=== PATIENT | female | born 1975 | race African-American/Black ===

== ENCOUNTER 2020-03-13 10:29 | Inpatient (IN) ==
[2020-03-13] MEDS ORDERED: ONDANSETRON 4 MG/2 ML VIAL IV PRN (11:00)
[2020-03-13] MEDS ORDERED: MAGNESIUM SULF RIDER 100 ML IV ONE (11:04)
[2020-03-13] MEDS ORDERED: TERBUTALINE 1 MG/1 ML VIAL SUBCUT ONE ×3 (11:04→23:40)
[2020-03-13] MEDS: LACTATED RINGERS 1,000 ML IV SCH ×2 (11:17→18:35)
[2020-03-13 11:18] LABS: Basophils % 0.4 % (0.0-0.8); Eosinophils # 0.1 10*3/uL (0.0-0.87); Eosinophils % 0.8 % (0.00-10.9); Hematocrit 34.4 VOL% (35.7-47.0); Hemoglobin 12.4 GM/DL (12.0-16.0); Immature Granulocytes % 0.5 %; Immature Granulocytes Absolute 0.05 #; Lymphocytes # 2.1 10*3/uL (1.4-4.0); Mean Corpuscular Volume 77.8 FL (87-102); Mean Platelet Volume 11.2 FL (9.6-12.0); Monocytes % 8.7 % (1.7-12.7); Neutrophils % 67.6 % (38.7-73.9); Platelet Count 233 T/CUMM (130-400); Red Blood Count 4.42 MC/CUMM (3.8-5.5); Red Cell Distribution Width 13.4 % (9.3-17.3); White Blood Count 9.7 T/CUMM (4-12)
[2020-03-13] MEDS ORDERED: BETAMETH SODIUM PHOS/ACETATE 30 MG/5 ML VIAL IM SCH (11:30)
[2020-03-13] MEDS ORDERED: MAGNESIUM SULF DRIP 40 GM/1,000 ML ML IV SCH (11:30)
[2020-03-13 11:41] LABS: Albumin 2.5 G/DL (3.4-5.0); Bilirubin,Total 0.5 MG/DL (0.2-1.0); Calcium 9.3 MG/DL (8.5-10.1); Osmolality,Calculated 269.8 MOS/KG (273-304); Total Protein 6.3 G/DL (6.4-8.3)
[2020-03-13] MEDS: CLINDAMYCIN INJ 900 MG in PREMIX 1 EACH IV SCH ×2 (12:13→19:42)
[2020-03-13] MEDS: FAMOTIDINE 20 MG/2 ML VIAL IV SCH (13:18)
[2020-03-13] MEDS ORDERED: MEPERIDINE 50 MG/1 ML VIAL IM ONE (16:08)
[2020-03-13] MEDS ORDERED: ONDANSETRON 4 MG/2 ML VIAL IM ONE (16:08)
[2020-03-13] MEDS ORDERED: ALUMINUM/MAGNES/SIMETH MAX STR 30 ML UDCUP PO PRN (19:46)
[2020-03-13] MEDS: MEPERIDINE 50 MG/1 ML VIAL IV PRN ×2 (20:08→23:30)
[2020-03-13] MEDS ORDERED: BUTORPHANOL 2 MG/ML VIAL IV PRN (23:34)
[2020-03-13] MEDS ORDERED: TERBUTALINE 1 MG/1 ML VIAL ONE (23:37)
[2020-03-14] MEDS: TERBUTALINE 1 MG/1 ML VIAL SUBCUT PRN ×2 (00:13→00:45)
[2020-03-14] MEDS: FAMOTIDINE 20 MG/2 ML VIAL IV SCH (01:25)
[2020-03-14] MEDS: LACTATED RINGERS 1,000 ML IV SCH (03:08)
[2020-03-14] MEDS: CLINDAMYCIN INJ 900 MG in PREMIX 1 EACH IV SCH (04:23)
[2020-03-14] MEDS ORDERED: miSOPROStoL 200 MCG TABLET ONE (07:45)
[2020-03-14] MEDS ORDERED: TRANEXAMIC ACID 1,000 MG/10 ML VIAL ONE ×2 (07:45→07:46)
[2020-03-14] MEDS ORDERED: OXYTOCIN/LR 20 UNIT/1,000 ML BAG IV ONE ×2 (07:45→07:57)
[2020-03-14] MEDS ORDERED: CARBOPROST TROMETHAMINE 250 MCG/ML AMP IM ONE (07:46)
[2020-03-14] MEDS ORDERED: METHYLERGONOVINE 0.2 MG/1 ML AMP ONE (07:46)
[2020-03-14] MEDS ORDERED: BENZOCAINE 20%/MENTHOL 0.5% SPRAY 56 GM CAN TOP PRN (07:57)
[2020-03-14] MEDS ORDERED: RHO(D) IMMUNE GLOBULIN 300 MCG SYRINGE IM ONE (07:57)
[2020-03-14] MEDS ORDERED: WITCH HAZEL PADS 100/JAR TOP PRN (07:57)
[2020-03-14] MEDS ORDERED: BISACODYL 10 MG SUPP RECTAL PRN (07:57)
[2020-03-14] MEDS ORDERED: MEASLES/MUMPS/RUBELLA VACCINE 0.5 ML VIAL SUBCUT ONE (07:57)
[2020-03-14] MEDS ORDERED: ONDANSETRON 4 MG/2 ML VIAL IV PRN (07:57)
[2020-03-14] MEDS ORDERED: HYDROCORTISONE 2.5% RECTAL CREAM 30 GM TUBE TOP PRN (07:57)
[2020-03-14] MEDS ORDERED: DIPH/TET/ACEL PERT BOOSTER VACCINE 0.5 ML VIAL IM ONE (07:57)
[2020-03-14] MEDS ORDERED: LANOLIN 50% CREAM 0.3 OZ TUBE TOP PRN (07:57)
[2020-03-14] MEDS ORDERED: oxyCODONE/ACETAMINOPHEN 5-325 MG TABLET PO PRN ×2 (07:57)
[2020-03-14] MEDS ORDERED: ACETAMINOPHEN 325 MG TABLET PO PRN (07:57)
[2020-03-14 08:03] LABS: Cord Venous Blood HCO3 15.4 MMOL/L; Cord Venous Blood PCO2 33.5 MMHG
[2020-03-14] MEDS: DOCUSATE SODIUM 100 MG CAPSULE PO SCH ×2 (11:45→21:59)
[2020-03-14] MEDS ORDERED: BENZOCAINE/MENTHOL LOZENGE 18/BOX PO PRN (12:37)
[2020-03-14] MEDS: IBUPROFEN 800 MG TABLET PO PRN (22:05)
[2020-03-15 06:20] LABS: Basophils # 0.1 10*3/uL (0.0-0.2); Basophils % 0.4 % (0.0-0.8); Eosinophils # 0.1 10*3/uL (0.0-0.87); Eosinophils % 0.4 % (0.00-10.9); Hematocrit 31.6 VOL% (35.7-47.0); Hemoglobin 11.1 GM/DL (12.0-16.0); Immature Granulocytes % 0.8 %; Immature Granulocytes Absolute 0.13 #; Lymphocytes # 2.9 10*3/uL (1.4-4.0); Lymphocytes % 17.4 % (21.3-54.2); Mean Corpuscular HGB Conc 35.1 GM/DL (32-36); Mean Corpuscular Volume 79.2 FL (87-102); Mean Platelet Volume 11.7 FL (9.6-12.0); Monocytes % 7.7 % (1.7-12.7); Neutrophils % 73.3 % (38.7-73.9); Platelet Count 215 T/CUMM (130-400); Red Blood Count 3.99 MC/CUMM (3.8-5.5); Red Cell Distribution Width 13.5 % (9.3-17.3); White Blood Count 16.4 T/CUMM (4-12)
[2020-03-15 06:43] LABS: Hypochromasia 1+; Platelet Estimate Adequate
[2020-03-15] MEDS: DOCUSATE SODIUM 100 MG CAPSULE PO SCH ×2 (09:56→20:56)
[2020-03-15] MEDS: IBUPROFEN 800 MG TABLET PO PRN (20:55)
[2020-03-16 08:08] VITALS: BP 112/52
[2020-03-16] MEDS: DOCUSATE SODIUM 100 MG CAPSULE PO SCH (09:41)
== END 2020-03-16 12:35 | disposition home or self-care (01) | DRG 805 ==
LOC: N.LDOUT 10:29 → N.LD 10:31 → N.OB 03-14 11:04
PROVIDERS: ADMIT Obstetrics & Gynecology; ATTEND Obstetrics & Gynecology